=== PATIENT | male | born 1965 | race Hispanic/Latino ===

== ENCOUNTER 2023-09-18 11:22 | Emergency (ER) | payer SELFPAY ==
[2023-09-18 11:34] VITALS: BP 133/87
[2023-09-18 12:17] LABS: % Basophils 0.6 % (0-2); % Eosinophils 1.9 % (0-6); % Immature Granulocytes 1.4 % (0-0.5); % Lymphocytes 28.2 % (20.5-51.1); % Monocytes 7.4 % (1.7-9.3); % Neutrophils 60.5 % (42.2-75.2); Absolute Basophils 0.1 10^3/uL (0-0.2); Absolute Eosinophils 0.2 10^3/uL (0-0.7); Absolute Immature Granulocytes 0.1 10^3/uL (0-0.05); Absolute Lymphocytes 2.7 10^3/uL (1.2-3.4); Absolute Monocytes 0.7 10^3/uL (0.1-0.6); Absolute Neutrophils 5.9 10^3/uL (1.4-6.5); Hematocrit 43.7 % (39.0-52.0); Hemoglobin 15.2 g/dL (13.0-18.0); Mean Corp Hgb Conc. 34.8 g/dL (33.0-37.0); Mean Corpuscular Volume 83.2 fL (80.0-94.0); Mean Platelet Volume 9.9 fL (7.4-10.4); Nucleated Red Blood Cells % 0 % (-); Platelet Count 330 10^3/uL (130-400); Red Blood Cell Count 5.25 10^6/uL (4.70-6.10); Red Cell Dist. Width 12.2 % (11.5-14.5); White Blood Cell Count 9.7 10^3/uL (4.8-10.8)
[2023-09-18 12:21] LABS: Urine Albumin Negative (Neg - Trace); Urine Bilirubin Negative (Negative); Urine Character Clear (Clear); Urine Color Yellow; Urine Glucose 3+ (Negative); Urine Ketone 1+ (Negative); Urine Leukocyte Negative (Negative); Urine Nitrite Negative (Negative); Urine Occult Blood Negative (Negative); Urine Urobilinogen Negative (Neg - 1+)
[2023-09-18 12:32] LABS: ALT (SGPT) 47 U/L (0-50); AST (SGOT) 38 U/L (17-59); Albumin 4.6 g/dl (3.5-5.0); Alkaline Phosphatase 96 U/L (38-126); Blood Urea Nitrogen 14 mg/dl (9-20); Calcium 9.7 mg/dl (8.4-10.2); Carbon Dioxide 24 mmol/L (22-30); Chloride 101 mmol/L (98-107); Glucose 294 mg/dl (70-99); Lipase 116 U/L (23-300); Potassium 4.8 mmol/L (3.5-5.1); Sodium 133 mmol/L (135-145); Total Bilirubin 0.8 mg/dl (0.2-1.3); Total Protein 7.3 g/dl (6.3-8.2); eGFR > 60.00
--- NOTE | 2023-09-18 13:28 | ED.GENMED ---
History of Present Illness
General
Chief Complaint: Abdominal Pain
Source: patient
Exam Limitations: none
Time Seen by Provider: 09/18/23 13:19
Nursing documentation reviewed up to this point in time: agreed with
Travel History
Have you had any contact with someone who has COVID-19?: No
Do you have any symptoms of coronavirus? Fever > 100 degrees, chills, cough, shortness of breath, sore throat, loss of taste or smell, muscle aches, or headache?: No
History of Present Illness
History of Present Illness:
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
non-smoker no heavy lifting no black or bloody stools no hematuria question of some swelling into his testicles
Past History
Past History
ED Past Medical History: NIDDM
ED Past Surgical History: Orthopedic; Negative Appendectomy or Bowel resection
Social History
Tobacco: Non-smoker
Alcohol: Occasional
Drug: None
Review of Systems
Review of Systems
All Other Systems: Not applicable
Constitutional: Denies fever or fatigue
EENT: Reports no symptoms
Respiratory: Reports no symptoms
Cardiac: Reports no symptoms
ABD/GI: Reports abdominal pain; Denies nausea or diarrhea
: Denies urgency or bleeding
Musculoskeletal: Reports no symptoms
Skin: Reports no symptoms
Neurological: Reports no symptoms
Endocrine: Reports no symptoms
Phy Exam
Physical Exam
Physical Exam:
Physical Exam
General: no apparent distress, not acutely ill
Neck: No jaundice
Heart: Regular
Lungs: no acute respiratory distress. clear bilaterally
Abdomen: Suprapubic and left lower quadrant tenderness
Neuro: alert and oriented. no focal neurological deficits
Skin: no rash
Psychiatric: well kept. interactive and cooperative
Extremities: no edema.
Course
Orders/Labs/Results
Orders:
Orders
09/18/23 11:50
Complete Blood Count/With Diff Urgent
Comprehensive Metabolic Panel Urgent
Lipase Urgent
Urinalysis Reflex To Culture Urgent
Date Specimen was Collected: 09/18/23
Time Specimen was Collected: 11:40
09/18/23 13:29
CT Abd/pelvis W Iv Cont Urgent
Comment:
Reason For Exam: Left lower quadrant pain
Morphine Sulfate 4 mg IV NOW STA
Ondansetron Injectable [Zofran] 4 mg IV NOW STA
Abnormal Lab Results
09/18/23
11:50
Abs Immat Gran (auto) 0.1 H 10^3/uL
(0-0.05)
Absolute Monos (auto) 0.7 H 10^3/uL
(0.1-0.6)
Immature Gran % 1.4 H %
(0-0.5)
Sodium 133 L mmol/L
(135-145)
Glucose 294 H mg/dl
(70-99)
Urine Ketones 1+ A
(Negative)
Urine Glucose 3+ A
(Negative)
09/18/23 11:50
09/18/23 11:50
Vital Signs
Initial and Last Documented VS:
Initial Vital Signs
Temp Pulse Resp BP Pulse Ox
98.2 F 82 18 133/87 95
09/18/23 11:34 09/18/23 11:34 09/18/23 11:34 09/18/23 11:34 09/18/23 11:34
Last Documented Vital Signs
Temp Pulse Resp BP Pulse Ox
98.2 F 82 18 133/87 95
09/18/23 11:34 09/18/23 11:34 09/18/23 11:34 09/18/23 11:34 09/18/23 11:34
MDM/Problems Addressed
Differential Diagnosis Includes:
Diverticulitis retention appendicitis renal colic
MDM/Problems Addressed:
Abdominal pain
Chronic conditions affecting care: DM
Acute Exacerbation and/or Progression of Chronic Illness: DM
*Radiology
Radiology exam reviewed: preliminary read by ED provider
*Pulse Oximetry
Patient hypoxic: no
*Critical Care Note
Total Time (30-74mins, 75-104mins- exclusive of procedures): Not Applicable
Update Note
Update Note:
1:30 PM labs are noted bladder scan noted we will start saline hydration analgesics antiemetics CT scan
4:[address] report noted
Patient with patient feeling better, apparently he lives in the [place] area no PCP takes no meds he is diet controlled for his diabetes
On exam his abdomen is soft nontender, no testicular swelling no rash no inflammation seen on the CT scan
Will ask case management to see him
ED Attending Note
-
Portions of this chart may have been created with voice recognition software.� Occasional wrong word or��sound alike� substitutions may have occurred due to the inherent limitations of voice recognition software.
Discharge Plan
Departure
Patient Disposition: Home (Routine Discharge)
Date of Disposition: 09/18/23
Time of Disposition: 17:06
Patient with high blood pressure during this ER visit?: No
Condition: Good
Covid-19: Not Applicable
Discharge Problem:
Abdominal pain
Instructions: Diabetes and diet, Abdominal Pain
Prescriptions:
New
metformin 500 mg tablet
500 mg PO BID Qty: 60 0RF
Rx Instructions:
Start on Thursday-09/20/23
levofloxacin 500 mg tablet
500 mg PO DAILY Qty: 7 0RF
Referrals:
NONE,* [Family Provider] -
Cezar Baltazar MD [Active] - Next open appointment
Activity Restrictions/Additional Instructions:
Follow-up in the clinic in [place]
Start metformin 500 mg twice a day--- start on Thursday the ----do not take until Thursday
Return to the ER if worsening symptoms
Interventions
Interventions:
*Risk Screen - Suicide Last Done: 09/18/23 11:34
*General Assessment Last Done: 09/18/23 11:34
*Neglect/Abuse Screening Last Done: 09/18/23 11:34
MA-Akkcuv-Fxkydzhjdn Assessment Last Done: 09/18/23 13:31
[2023-09-18] MEDS: MORPHINE SULFATE 4 MG IV (13:41)
[2023-09-18] MEDS: ZOFRAN 4 MG IV (13:41)
--- NOTE | 2023-09-18 17:03 | CM ---
Patient provided with information on [facility] [place] and good RX coupon for any medication needs. Patient's friend was able to translate and explain that patient will have to follow up with [facility].
[2023-09-18 17:26] VITALS: BP 131/91
[2023-09-18 17:27] VITALS: BP 131/97
== END 2023-09-18 17:28 | disposition home or self-care (01) ==
LOC: EMR 11:22
PROVIDERS: Emergency Medicine; EMERGENCY PHYSICIAN Emergency Medicine
DX: R10.32 Left lower quadrant pain (principal); E11.9 Type 2 diabetes mellitus without complications
CPT/HCPCS: 99285; 96374; 96375; 74177; 80053; 81003; 83690; 85025; Q9967